=== PATIENT | female | born 1960 ===

== ENCOUNTER 2017-02-27 09:00 | Day surgery (SDC) | payer BC ==
[2017-02-27] MEDS ORDERED: Lactated Ringer's 500 ML IV ONE (09:28)
[2017-02-27] MEDS ORDERED: Propofol 10 mg/ml Inj (20 ML) ONE (10:42)
[2017-02-27 11:05] VITALS: BP 91/59; PULSE 70; RESP 16; TEMP 97; O2SAT 99
== END 2017-02-27 12:00 | disposition home or self-care (01) ==
LOC: H.ENDO 09:00
PROVIDERS: ATTEND Internal Medicine Gastroenterology
DX: Z12.11 Encounter for screening for malignant neoplasm of colon (principal); E78.5 Hyperlipidemia, unspecified; I10 Essential (primary) hypertension; K57.30 Diverticulosis of large intestine without perforation or abscess without bleeding; K64.8 Other hemorrhoids
CPT/HCPCS: 45378; J2704; J7120